=== PATIENT | male | born 1995 | race Caucasian/White ===

== ENCOUNTER → 2016-08-18 | Outpatient (CLI) | payer BC ==
--- NOTE | 2016-08-18 18:46 | CT ---
EXAMINATION TYPE: CT abdomen pelvis w con DATE OF EXAM: 08/18/2016 6:42 PM COMPARISON: NONE HISTORY: Mid Abd pain with nausea, vomiting and diarrhea CT DLP: 503.1 mGycm Automated exposure control for dose reduction was used. TECHNIQUE: Helical acquisition of images was performed from the lung bases through the pelvis. CONTRAST: Performed with Oral Contrast and with IV Contrast, patient injected with 100 mL of Omnipaque 300. FINDINGS: The lung bases are clear. There is no pleural effusion. Heart size is normal. Liver spleen pancreas gallbladder appear normal. Bile ducts are not dilated. There is no adrenal mass . Kidneys show satisfactory contrast opacification. There is no hydronephrosis. There is no retroperi toneal adenopathy. I see no intestinal wall thickening. There are no dilated loops. Bladder distends smoothly. Appendix appears normal. I see no bony destructive process. IMPRESSION: NORMAL CT SCAN OF THE ABDOMEN AND PELVIS. NORMAL APPENDIX.
== END | disposition home or self-care (01) ==
LOC: RADCTMAIN 16:50
PROVIDERS: ATTEND Family Medicine
DX: R10.9 Unspecified abdominal pain (principal)
CPT/HCPCS: 74177; Q9967

== ENCOUNTER 2016-10-05 10:29 | Day surgery (SDC) | payer BC ==
[2016-10-01 14:57] VITALS: BMI 24.7
[~2016-10-05 10:29] MED LIST: LACTATED RINGERS 1,000 ML IV SCH; LIDOCAINE 1% 20 ML VIAL (10MG/ML) FOR IV START INTRADERMA PRN
[2016-10-05 11:06] VITALS: TEMP 97.7
[2016-10-05] MEDS ORDERED: PROPOFOL 10 MG/ML 20 ML VIAL IV ONE (12:33)
[2016-10-05 12:56] VITALS: RESP 16
--- NOTE | 2016-10-05 13:05 | P.PCN ---
Date of Procedure: 10/05/16 Preoperative Diagnosis: Postoperative Diagnosis: Procedure(s) Performed: Procedure: Esophagogastroduodenoscopy and biopsy. Preoperative diagnosis: Chronic cough and reflux symptoms. Postoperative diagnosis: 1. Small sliding hiatal hernia with low-grade distal esophagitis. 2. Mild gastritis. 3. Multiple biopsies obtained from the duodenum, antrum and esophagus. Preparation and sedation: Was provided by anesthesia. Brief clinical history: The patient is a 21-year-old male who I have evaluated in the office last month for cough of 1 year duration and he has been experiencing vomiting 1-3 times per week. He has been on omeprazole for the prior 6 months with incomplete improvement of his symptoms. He reported difficulty swallowing pills but not food. No other alarm symptoms. Procedure: With the patient on his left lateral decubitus position and after informed consent and adequate sedation, I passed the Olympus-GIF 160 video upper endoscope through the cricopharyngeus down the esophagus. GE junction was around 43-44 cm from the incisors. There was a small sliding hiatal hernia. The distal esophagus showed few short erosions consistent with LA grade B distal esophagitis. There were no ulcers, strictures or Medina's esophagus. The endoscope was then passed into the stomach which was insufflated with air and inspected in detail including the retroflex view in the cardia. There was some mottling and erythema in the antrum but no ulcers or erosions. Pyloric channel did not show any ulcers. Duodenal bulb, post bulbar area and descending duodenum showed minimal erythema. Multiple biopsies were obtained from the duodenum, antrum and esophagus before the endoscope was withdrawn. The patient tolerated the procedure well. Plan: The patient was reassured. Will continue to optimize antireflux diet and measures and acid suppressive therapy. His reflux could be related to acid or alkali. If his symptoms do not improve, despite intensive medical therapy, will consider a 24-hour pH study for further assessment of the situation. I will keep you updated on his progress. Implants: Indications for Procedure: Operative Findings: Description of Procedure:
[2016-10-05 13:12] VITALS: BP 133/82; PULSE 63
== END 2016-10-05 13:26 | disposition home or self-care (01) ==
LOC: ORWHC2ENDO 10:29
DX: K29.50 Unspecified chronic gastritis without bleeding (principal); K21.0 Gastro-esophageal reflux disease with esophagitis; K44.9 Diaphragmatic hernia without obstruction or gangrene; R05 Cough; Z79.899 Other long term (current) drug therapy
CPT/HCPCS: 88305; 88342; 43239; J2704; 45380

== ENCOUNTER → 2024-05-10 | Outpatient (CLI) | payer BC ==
--- NOTE | 2024-05-10 17:03 | CT ---
EXAMINATION TYPE: CT brain [place] serrato con DATE OF EXAM: 05/10/2024 COMPARISON: NONE HISTORY: fell hitting back of head with headache and neck pain CT DLP: 1839.7 mGycm. Automated Exposure Control for Dose Reduction was Utilized. TECHNIQUE: CT scan of the head and cervical spine are performed without contrast. FINDINGS: There is no acute intracranial hemorrhage, mass effect, or midline shift identified. The ventricles and sulci are within normal limits in size. Jordan-white matter differentiation is maintain ed. The globes are intact bilaterally. The calvarium is intact. There is near complete opacification of the right maxillary sinus. There is small 1.5 cm mucous retention cyst or polyp in the anterior i nferior left maxillary sinus. Cervical spine is visualized in its entirety from C1 through upper thoracic levels and demonstrates satisfactory alignment without evidence of acute fracture or dislocation. Prevertebral soft tissue a ppears within normal limits. The C1-C2 articulation is within normal limits on the coronal images. Vertebral body heights and disc space heights are within normal limits. Spinal canal is preserved. Th yroid gland is within normal limits. Lung apices show no pneumothorax. A right-sided cardiac arch is partially imaged. IMPRESSION: 1. There is no acute fracture or dislocation evident in the cervical spine. 2. No acute intracranial hemorrhage or midline shift is seen. [facility], , 05/10/2024 5:00 PM
== END | disposition home or self-care (01) ==
LOC: RADCTMAIN 16:22
PROVIDERS: ATTEND Family Medicine
DX: S09.90XA Unspecified injury of head, initial encounter (principal); M54.2 Cervicalgia
CPT/HCPCS: 70450; 72125